=== PATIENT | female | born 1930 | race Caucasian/White ===

== ENCOUNTER 2018-04-10 11:17 | Inpatient (IN) | payer OTHER ==
[2018-04-10 11:57] LABS: ADD MAN DIFF? NO
[2018-04-10] MEDS: LORAZEPAM 2 MG INJ IV (12:00)
[2018-04-10] MEDS: DILTIAZEM 50 MG INJ IV (12:04)
[2018-04-10 12:12] LABS: WHITE BLOOD COUNT 13.4 10^3/ul (4.8-10.8)
[2018-04-10 12:12] LABS: BASOPHILS % 0.1 % (0.0-2.0); HEMATOCRIT 40.5 % (37.0-47.0); HEMOGLOBIN 13.3 g/dl (12.0-16.0); LYMPHOCYTES # 0.7 10^3/ul (0.8-2.9); LYMPHOCYTES % 5.3 % (15.0-51.0); MEAN CORPUSCULAR HEMOGLOBIN 30.9 pg (29.0-33.0); MEAN CORPUSCULAR HGB CONC 32.8 g/dl (32.0-37.0); MEAN PLATELET VOLUME 9.4 fl (7.4-10.4); MONOCYTE # 0.8 10^3/ul (0.3-0.9); MONOCYTES % 6.3 % (0.0-11.0); NEUTROPHIL # 11.8 10^3/ul (1.6-7.5); NEUTROPHILS % 87.9 % (39.0-77.0); PLATELET COUNT 349 10^3/UL (140-415); RED BLOOD COUNT 4.31 10^6/ul (4.20-5.40); RED CELL DISTRIBUTION WIDTH 14.6 % (11.5-14.5)
[2018-04-10] MEDS: DILTIAZEM-D5W 125MG/125ML DRIP 125 ML IV (12:20)
[2018-04-10 12:23] LABS: ALANINE AMINOTRANSFERASE 22 IU/L (13-69); ALKALINE PHOSPHATASE 107 IU/L (42-121); ANION GAP 12 (8-16); ASPARTATE AMINO TRANSFERASE 25 IU/L (15-46); BILIRUBIN,INDIRECT 0.4 mg/dl (0-1.1); BILIRUBIN,TOTAL 0.4 mg/dl (0.2-1.3); BLOOD UREA NITROGEN 25 mg/dl (7-20); CALCIUM 9.1 mg/dl (8.4-10.2); CARBON DIOXIDE 29 mmol/L (21-31); CHLORIDE 107 mmol/L (97-110); CREATININE 0.92 mg/dl (0.44-1.00); GLUCOSE 139 mg/dl (70-220); POTASSIUM 3.8 mmol/L (3.5-5.1); SODIUM 144 mmol/L (135-144); TOTAL PROTEIN 6.3 g/dl (6.1-8.1)
[2018-04-10 12:27] LABS: PROTIME 13.3 Sec (11.9-14.9)
[2018-04-10 12:28] LABS: PARTIAL THROMBOPLASTIN TIME 33.5 Sec (25.0-35.0)
[2018-04-10 12:35] LABS: B-TYPE NATRIURETIC PEPTIDE 5000 PG/ML (0-450); TROPONIN-I 0.063 ng/ml (0.000-0.120)
[2018-04-10] MEDS ORDERED: ACETAMINOPHEN 325 MG TAB PO (13:00)
[2018-04-10] MEDS ORDERED: ONDANSETRON 4 MG INJ IV ×2 (13:00→14:30)
[2018-04-10] MEDS: CEFEPIME 1GM/50 ML (PMX) 50 ML IVPB (14:19)
[2018-04-10] MEDS ORDERED: HYDROCODONE/APAP (5/325) TAB PO (14:30)
[2018-04-10] MEDS ORDERED: CEFTRIAXONE 1 GM/50 ML (PMX) 50 ML IVPB (14:30)
[2018-04-10] MEDS ORDERED: morphine 2 MG INJ IV (14:30)
[2018-04-10] MEDS ORDERED: NACL 0.9% 3 ML SYG IV (14:30)
[2018-04-10] MEDS: VANCOMYCIN 1 GM (PMX) 250 ML IVPB (15:24)
[2018-04-10] MEDS ORDERED: DILTIAZEM-D5W 125MG/125ML DRIP 125 ML IV (16:00)
[2018-04-10] MEDS: SOD CHLORIDE 0.9% 1,000 ML IV (16:30)
[2018-04-10] MEDS: HALOPERIDOL 5 MG INJ IM (16:36)
[2018-04-10] MEDS: ATORVASTATIN 20 MG TAB PO (21:37)
[2018-04-10] MEDS: D5W-0.45 NACL + KCL 20 MEQ 1,000 ML IV (21:39)
[2018-04-10] MEDS: ATENOLOL 50 MG TAB PO (21:59)
[2018-04-10] MEDS: MIRTAZAPINE 15 MG TAB PO (21:59)
[2018-04-10] MEDS: CEFTRIAXONE 1 GM/50 ML (PMX) 50 ML IVPB (23:19)
[2018-04-11] MEDS: MULTIVITAMINS THERAPEUTIC TAB PO (08:35)
[2018-04-11] MEDS: CHOLECALCIFEROL 1,000 UNIT TAB PO (08:35)
[2018-04-11] MEDS: ASPIRIN (EC) 81 MG TAB PO (08:35)
[2018-04-11] MEDS: CITALOPRAM 20 MG TAB PO (08:35)
[2018-04-11] MEDS: ATENOLOL 50 MG TAB PO (08:35)
[2018-04-11] MEDS: ENOXAPARIN 40 MG/0.4 ML SYG SC (08:36)
[2018-04-11 10:17] LABS: ADD MAN DIFF? NO
[2018-04-11 10:23] LABS: BASOPHILS % 0.1 % (0.0-2.0); EOSINOPHILS % 0.1 % (0.0-7.0); HEMATOCRIT 34.2 % (37.0-47.0); HEMOGLOBIN 11.2 g/dl (12.0-16.0); LYMPHOCYTES # 0.7 10^3/ul (0.8-2.9); LYMPHOCYTES % 6.4 % (15.0-51.0); MEAN CORPUSCULAR HEMOGLOBIN 30.9 pg (29.0-33.0); MEAN CORPUSCULAR HGB CONC 32.7 g/dl (32.0-37.0); MEAN CORPUSCULAR VOLUME 94.5 fl (82.0-101.0); MEAN PLATELET VOLUME 9.9 fl (7.4-10.4); MONOCYTE # 0.8 10^3/ul (0.3-0.9); MONOCYTES % 7.3 % (0.0-11.0); NEUTROPHILS % 85.7 % (39.0-77.0); PLATELET COUNT 315 10^3/UL (140-415); RED BLOOD COUNT 3.62 10^6/ul (4.20-5.40); RED CELL DISTRIBUTION WIDTH 14.6 % (11.5-14.5)
[2018-04-11 10:23] LABS: WHITE BLOOD COUNT 10.5 10^3/ul (4.8-10.8)
[2018-04-11 10:53] LABS: ANION GAP 10 (8-16); BLOOD UREA NITROGEN 18 mg/dl (7-20); CALCIUM 8.8 mg/dl (8.4-10.2); CARBON DIOXIDE 29 mmol/L (21-31); CHLORIDE 111 mmol/L (97-110); CHOL/HDL RATIO 3.7 RATIO; CHOLESTEROL 140 mg/dl (100-200); CREATININE 0.69 mg/dl (0.44-1.00); GLUCOSE 87 mg/dl (70-220); LDL CHOLESTEROL,CALCULATED 82 mg/dl; MAGNESIUM 1.8 mg/dl (1.7-2.5); PHOSPHORUS 3.6 mg/dl (2.5-4.9); POTASSIUM 3.5 mmol/L (3.5-5.1); SODIUM 146 mmol/L (135-144); TRIGLYCERIDES 105 mg/dl (0-149)
[2018-04-11 10:55] LABS: HDL CHOLESTEROL 37 mg/dl (33-92)
[2018-04-11 11:05] LABS: HEMOGLOBIN A1C 5.6 % (0-5.9)
[2018-04-11] MEDS: D5W-0.45 NACL + KCL 20 MEQ 1,000 ML IV (14:11)
[2018-04-11] MEDS: HALOPERIDOL 5 MG INJ IM (15:06)
[2018-04-11] MEDS: MIRTAZAPINE 15 MG TAB PO (20:52)
[2018-04-11] MEDS: ATORVASTATIN 20 MG TAB PO (20:52)
[2018-04-11] MEDS: CEFTRIAXONE 1 GM/50 ML (PMX) 50 ML IVPB (20:53)
[2018-04-12] MEDS: ASPIRIN (EC) 81 MG TAB PO (08:48)
[2018-04-12] MEDS: CITALOPRAM 20 MG TAB PO (08:48)
[2018-04-12] MEDS: MULTIVITAMINS THERAPEUTIC TAB PO (08:48)
[2018-04-12] MEDS: ATENOLOL 50 MG TAB PO (08:48)
[2018-04-12] MEDS: CHOLECALCIFEROL 1,000 UNIT TAB PO (08:48)
[2018-04-12] MEDS: ENOXAPARIN 40 MG/0.4 ML SYG SC (08:49)
[2018-04-12] MEDS: HALOPERIDOL 5 MG INJ IM ×2 (13:34→21:40)
[2018-04-12] MEDS: ACETAMINOPHEN 325 MG TAB PO (15:48)
[2018-04-12] MEDS: ATORVASTATIN 20 MG TAB PO (20:21)
[2018-04-12] MEDS: MIRTAZAPINE 15 MG TAB PO (20:21)
[2018-04-12] MEDS: QUETIAPINE 25 MG TAB PO (21:25)
[2018-04-12] MEDS: CEFTRIAXONE 1 GM/50 ML (PMX) 50 ML IVPB (23:11)
[2018-04-13] MEDS: ENOXAPARIN 40 MG/0.4 ML SYG SC (09:25)
[2018-04-13] MEDS: MULTIVITAMINS THERAPEUTIC TAB PO (09:34)
[2018-04-13] MEDS: CHOLECALCIFEROL 1,000 UNIT TAB PO (09:34)
[2018-04-13] MEDS: CITALOPRAM 20 MG TAB PO (09:34)
[2018-04-13] MEDS: ASPIRIN (EC) 81 MG TAB PO (09:34)
[2018-04-13] MEDS: ATENOLOL 50 MG TAB PO (09:34)
[2018-04-13] MEDS: HALOPERIDOL 5 MG INJ IM (12:16)
== END 2018-04-13 15:25 | disposition hospice, inpatient (51) | DRG 308 ==
LOC: MS4 04-11 16:19 → E/R 11:17 → MS4 04-12 11:38
DX: I48.2 Chronic atrial fibrillation (principal); J18.9 Pneumonia, unspecified organism; C34.92 Malignant neoplasm of unspecified part of left bronchus or lung; J90 Pleural effusion, not elsewhere classified; N39.0 Urinary tract infection, site not specified; G30.9 Alzheimer's disease, unspecified; F02.80 Dementia in other diseases classified elsewhere, unspecified severity, without behavioral disturbance, psychotic disturbance, mood disturbance, and anxiety; R62.7 Adult failure to thrive; J44.9 Chronic obstructive pulmonary disease, unspecified; R63.4 Abnormal weight loss; Z68.21 Body mass index [BMI] 21.0-21.9, adult; I95.9 Hypotension, unspecified; Z87.891 Personal history of nicotine dependence; R04.0 Epistaxis
CPT/HCPCS: 36415; 71045; 80048; 80053; 80061; 83036; 83735; 83880; 84100; 84484; 85025; 85610; 85730; 87040; 93005; 96365; 96366; 96368; 96372; 96375; 99291-25